=== PATIENT | female | born 1955 | race Caucasian/White ===

== ENCOUNTER 2017-03-09 15:03 | Emergency (ER) | payer BC ==
[~2017-03-09] VITALS: Ht 165.1 cm; Wt 77.1 kg
[2017-03-09 15:09] VITALS: BP 188/105
[2017-03-09] MEDS ORDERED: TRAMADOL 50 MG50 MG PO (16:17)
[2017-03-09] MEDS ORDERED: NORFLEX100 MG PO (16:17)
== END 2017-03-09 17:05 | disposition home or self-care (01) ==
LOC: ER 15:03
DX: M54.6 Pain in thoracic spine (principal); M62.830 Muscle spasm of back; J45.909 Unspecified asthma, uncomplicated; K21.9 Gastro-esophageal reflux disease without esophagitis; I10 Essential (primary) hypertension; Z88.2 Allergy status to sulfonamides; Z88.5 Allergy status to narcotic agent

== ENCOUNTER 2019-12-17 04:06 | Inpatient (IN) | payer BC ==
[~2019-12-17] VITALS: Ht 162.6 cm; Wt 81.6 kg
--- NOTE | ~2019-12-17 | EMS ---
[facility] [address] [place] [address] EMS Patient Care Report Name: CINDI MARCUM Room #: 170-12 ADM IN M.R.#: [id number] Admission: 12/17/19 Attend Phys: Maria G Ornelas MD Discharge: Date of : 59 Report #: [id number] THIS REPORT FOR: //name// Report Transmitted: 12/17/2019 05:32 EMS Care Summary [facility] MED-ACT Incident [id number] @ 12/17/2019 03:28 Incident Location [address] [place] [address] Patient CINDI MARCUM Female, 64 Years 1955 Patient Address [address] [place] [address] Patient History Hypertension (HTN),Depression,Anxiety,Alcohol Abuse, Patient Allergies Sulfa, Patient Medications Proair, Trazodone, Lorazepam, Amlodipine, Chief Complaint i feel terrible Disposition Transported No Lights/[place] Dispatch Reason Sick Person Transported To [facility] Narrative This crew arrives to find the pt sitting on a couch inside the living room of her apartment. She appears alert, anxious, and in no obvious distress, speaking [facility] [address] [place] [address] EMS Patient Care Report Name: CINDI MARCUM Room #: 170-12 ADM IN [place]#: [id number] Admission: 12/17/19 Attend Phys: Maria G Ornelas MD Discharge: Date of : 59 Report #: [id number] with S47. The pt states that for the previous few days she has felt "weak", "pain all over", difficulty breathing, and "like I'm going to ". She notes that the the dyspnea was unchanged with multiple uses of her home inhaler. She adds that she has not eaten in the previous day nor slept the past few nights. On this date she states that the symptoms had continued unchanged. At contact she reports generalized pain throughout her body, 11/29. She adds that she feels it is difficult for her to get a deep breath and that she has had a mildly productive cough with clear sputum. She moves steadily about her home and does not feel warm. She is shaking from all her limbs. The pt reports a history of anxiety and alcohol abuse. She states that her last drink was the previous day. The pt is assisted from her home to the cot just outside her door. She is secured and moved to the ambulance without incident. She is transported with two attendants in back, no change in condition during brief transport. The pt is moved to ER bed 12 without incident, report and care given to ANGELO Martines. Initial Vitals @03:42MI Suspected: false @03:48P: 101,BP: 183/87, @03:56P: 185,SpO2: 96, @03:59BP: 193/104,SpO2: 93, @03:58P: 51,SpO2: 92, @03:50P: 154,SpO2: 97, @PTAP: 104,R: 24,BP: 162/93,Pain: 10/10,GCS: 15,SpO2: 94,Revised Trauma: 12, @03:48SpO2: 100, @03:54P: 255,SpO2: 97, Assessments @03:58MENTAL:Person Oriented,Time Oriented,Place Oriented,Event Oriented,SKIN:HEENT:Eyes: Left Pupil: 3-mm,Eyes: Right Pupil: 3-mm,Head/Face: No Abnormalities,LUNG SOUNDS:General: No Abnormalities,ABDOMEN:General: No Abnormalities,PELVIS//GI:EXTREMITIES:Left Arm: No Abnormalities,Right Arm: No Abnormalities,Left Leg: No Abnormalities,Right Leg: No Abnormalities,PULSE:NEURO:No Abnormalities, Impression Malaise Procedures @03:58ALS AssessmentResponse: UnchangedSucceeded@03:4212-Lead ECGResponse: UnchangedSucceeded 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,BP: 162/93 M,PULSE: 104,RR: 24 R,SPO2: 94 Ox,ETCO2: ,BG: ,PAIN: 10,GCS: 15, 03:26,Call Received [address] [place] [address] EMS Patient Care Report Name: CINDI MARCUM Room #: 170-12 ADM IN M.R.#: [id number] Admission: 12/17/19 Attend Phys: Maria G Ornelas MD Discharge: Date of : 59 Report #: [id number] 03:26,Psap Call 03:28,Dispatched 03:30,En Route 03:37,On Scene 03:41,At Patient 03:42,12-Lead ECG,Response: UnchangedSucceeded, 03:42,BP: / M,PULSE: ,RR: R,SPO2: Ox,ETCO2: ,BG: ,PAIN: ,GCS: , 03:48,BP: 183/87 M,PULSE: 101,RR: R,SPO2: Ox,ETCO2: ,BG: ,PAIN: ,GCS: , 03:48,BP: / M,PULSE: ,RR: R,SPO2: 100 Ox,ETCO2: ,BG: ,PAIN: ,GCS: , 03:50,BP: / M,PULSE: 154,RR: R,SPO2: 97 Ox,ETCO2: ,BG: ,PAIN: ,GCS: , 03:52,Depart Scene 03:54,BP: / M,PULSE: 255,RR: R,SPO2: 97 Ox,ETCO2: ,BG: ,PAIN: ,GCS: , 03:56,BP: / M,PULSE: 185,RR: R,SPO2: 96 Ox,ETCO2: ,BG: ,PAIN: ,GCS: , 03:58,ALS Assessment,Response: UnchangedSucceeded, 03:58,At Destination 03:58,BP: / M,PULSE: 51,RR: R,SPO2: 92 Ox,ETCO2: ,BG: ,PAIN: ,GCS: , 03:59,BP: 193/104 M,PULSE: ,RR: R,SPO2: 93 Ox,ETCO2: ,BG: ,PAIN: ,GCS: , 04:17,Call Closed Disclaimer v1.1 Copyright 2020 [employer] This EMS Care Summary contains data elements from the applicable legal record (which may be displayed differently). It is designed to provide pertinent information for the following purposes: continuity of care, clinical quality, and state data reporting. The complete legal record is available to ED staff and administrators of the receiving hospital in [facility]'s Patient Tracker. All data is provided "as is."
[~2019-12-17 04:06] MED LIST: NORFLEX100 MG PO; TRAMADOL 50 MG50 MG PO
[2019-12-17 04:09] VITALS: BP 150/87
[2019-12-17 05:12] LABS: ABSOLUTE NEUTROPHILS 5.5 thou/uL (1.4-8.2); BASOPHILS 0.2 % (0.0-2.0); HEMATOCRIT 38.1 % (37.0-47.0); HEMOGLOBIN 13.1 gm/dL (12.0-15.0); LYMPHOCYTES 7.9 % (24.0-44.0); MCH 32.2 pg (26.0-34.0); MCHC 34.3 g/dL (28.0-37.0); MONOCYTES 5.9 % (1.0-8.0); PLATELET COUNT 143 thou/uL (150-400); RBC 4.06 mil/uL (4.20-5.00); WBC 6.4 thou/uL (4.0-11.0)
[2019-12-17 05:14] LABS: ANION GAP 14 mmol/L (7-16); BUN 5 mg/dL (7-18); CALCIUM 8.4 mg/dL (8.5-10.1); CHLORIDE 84 mmol/L (98-107); CO2 23 mmol/L (21-32); CREATININE 0.8 mg/dL (0.6-1.0); GLUCOSE 130 mg/dL (74-106); POTASSIUM 3.2 mmol/L (3.5-5.1); SODIUM 121 mmol/L (136-145)
[2019-12-17 05:16] LABS: URINE BILIRUBIN NEGATIVE (Negative); URINE BLOOD 2+ (Negative); URINE CLARITY CLEAR; URINE COLOR YELLOW; URINE GLUCOSE-RANDOM* 1+ (Negative); URINE KETONES NEGATIVE (Negative); URINE LEUKOCYTES-REFLEX NEGATIVE (Negative); URINE NITRITE-REFLEX NEGATIVE (Negative); URINE PROTEIN (DIPSTICK) 1+ (Negative); URINE UROBILINOGEN 0.2 E.U./dl (0.2-1.0)
[2019-12-17 05:25] LABS: ALBUMIN 3.8 g/dL (3.4-5.0); LIPASE 110 U/L (73-393); SGOT 160 U/L (15-37); SGPT 173 U/L (30-65); TOTAL BILIRUBIN 1.4 mg/dL (0.2-1.0); TOTAL PROTEIN 7.3 g/dL (6.4-8.2); TROPONIN-I <0.06 ng/mL (<0.06)
[2019-12-17 05:38] LABS: BACTERIA-REFLEX 1-9 Few /HPF (None Seen); CASTS None Seen /LPF (None Seen); CRYSTALS None Seen /LPF (None Seen); MUCUS 0-3 Light strn/LPF (None Seen); SQUAMOUS 4-10 Moderate /LPF (0-3); URINE RBC 3-10 Few /HPF (0-2); URINE WBC-REFLEX 0-5 Rare /HPF (0-5)
--- NOTE | 2019-12-17 08:02 | EKG ---
[facility] [place] [address] ELECTROCARDIOGRAM REPORT Name: CINDI MARCUM Room #: 170-12 ADM IN M.R.#: [id number] Admission: 12/17/19 Attend Phys: Maria G Ornelas MD Discharge: Date of : 59 Report #: [id number] THIS REPORT FOR: cc: [facility] - Clinic physician unknown [facility] - Clinic physician unknown Memo Miller MD [facility] ~ THIS REPORT FOR: //name// [facility] ED Test Date: 2019-12-17 Test Time: 04:39:27 Pat Name: CINDI MARCUM Department: Room: 170 Gender: F Associate Manager: STEPHANIE : 1955 Requested By: Dell Tafoya Order Number: [id number] MD: Memo Miller Measurements Intervals [place] Rate: 101 P: [place]: QRS: 4 QRSD: 90 T: 6 QT: 317 QTc: 411 Interpretive Statements SINUS TACHYCARDIA Borderline T abnormalities, inferior leads Compared to ECG 08/21/2008 15:26:10 No significant change Electronically Signed On 12-17-2019 8:01:51 CDT by Memo Miller [email or web address] <ELECTRONICALLY SIGNED> By: Memo Miller MD, FACC 12/17/19 0801 [id number] Memo Miller MD, [facility] /EPI
[2019-12-17 09:09] VITALS: BP 158/85
--- NOTE | 2019-12-17 09:15 | NUR ---
RECEIVED CALL FOR [facility] OF [facility] 4.4. CALL PLACED TO DR TAVAREZ WAITING FOR RETURN
[2019-12-17 09:39] VITALS: BP 158/85
[2019-12-17 11:26] VITALS: BP 156/82
[2019-12-17 16:03] VITALS: BP 147/89
--- NOTE | 2019-12-17 16:18 | NUR ---
INITIAL ASSESSMENT: DEMETRIA notified by VANNESSA RN that pt's insurance is out of network with [facility]. Pt will need to transfer to an in-network provider: [place], [facility], [facility], [facility], [facility] or [facility]. DEMETRIA placed call to transfer centers for all of these hospitals. [place] and [facility] are not taking and transfers at this time. [facility], [facility], [facility] and [facility] are able to consider transfer. DEMETRIA spoke with pt via phone. Pt verbalized understanding of need for transfer. Pt [facility]. DEMETRIA faxed face sheet to transfer center. Spoke with Roxie. Provided contact info for attending physician. Pt is COVID negative. [facility] and [facility] transfer form faxed to nurses station to place on pt's chart. DEMETRIA spoke with pt's nurse to provide update. [facility] Transfer center to contact SW or nurses station with accepting physician and bed assignment. Chart copy requested. DEMETRIA spoke with Lluvia in radiology to request images to be uploaded to the [facility]. Once bed has been assigned, ambulance transportation will need to be arranged. DEMETRIA is available to assist as needed. [facility] N[facility]-- [facility]--
[2019-12-17] MEDS ORDERED: ATIVAN0.5 M1 PO (17:17)
[2019-12-17] MEDS ORDERED: NORVASC 2.5 MG2.5 M1 PO (17:18)
[2019-12-17] MEDS ORDERED: CELEXA 10 MG TA10 M1 PO (17:19)
[2019-12-17] MEDS ORDERED: ZOLPIDEM TARTRA10 MG PO (17:21)
--- NOTE | 2019-12-17 18:48 | NUR ---
PATIENT ADMIT TO UNIT AT 1000 FROM ER. A/O X4 ETOH, CIW 6. UP WITH STANDBY ASSISTED TO BSC. GAIT UNSTEAD. LOW GRADE TEMP. MAY TRANSFER OUT TONIGHT. SLOWLY TOWARDS POC GOALS.
== END 2019-12-17 21:39 | DRG 872 ==
LOC: ER 04:06 → EROBS 05:59 → 3W 09:42
PROVIDERS: Emergency Medicine; ADMIT Hospitalist; ATTEND Hospitalist
DX: A41.9 Sepsis, unspecified organism (principal); E87.2 Acidosis; F10.239 Alcohol dependence with withdrawal, unspecified; E87.1 Hypo-osmolality and hyponatremia; J45.909 Unspecified asthma, uncomplicated; K21.9 Gastro-esophageal reflux disease without esophagitis; I10 Essential (primary) hypertension; Z20.828 Contact with and (suspected) exposure to other viral communicable diseases; Z88.2 Allergy status to sulfonamides; Z90.710 Acquired absence of both cervix and uterus
CPT/HCPCS: 10879

== ENCOUNTER 2020-09-17 21:58 | Inpatient (IN) | payer BC ==
[~2020-09-17] VITALS: Ht 152.4 cm; Wt 77.6 kg
--- NOTE | ~2020-09-17 | EMS ---
[address] [address] EMS Patient Care Report Name: CINDI MARCUM Room #: 356-P ADM IN M.R.#: [id number] Admission: 09/18/20 Attend Phys: Nitesh Bourgeois MD Discharge: Date of : 59 Report #: [id number] THIS REPORT FOR: //name// Report Transmitted: 09/18/2020 06:29 EMS [facility]ACT Incident [id number] @ 09/17/2020 21:23 Incident Location [address] [place] [address] Patient CINDI MARCUM Female, 65 Years 1955 Patient Address [address] [place] [address] Patient History Anxiety Disorder (Panic Attacks),Back Pain (Chronic),Insomnia, Patient Allergies Sulfa, Patient Medications Lorazepam, Tylenol, Albuterol, Ambien, Amlodipine, Chief Complaint nausea, dark urine, difficulty urinating Disposition Transported No Lights/[place] Dispatch Reason Abdominal Pain/Problems Transported To [facility] Narrative Dispatched to a residence for a female pt reporting nausea, lack of appetite, LUQ pain, and general malaise x3 days. Pt is found alert, supine in bed with [address] [address] EMS Patient Care Report Name: CINDI MARCUM Room #: 356-P [facility] IN M.R.#: [id number] Admission: 09/18/20 Attend Phys: Nitesh Bourgeois MD Discharge: Date of : 59 Report #: [id number] [facility] crew tending to her. Pts reports that she has not been eating due to the nausea, and that her urine (when she can produce any) is dark in color. Pt reports that she has LUQ pain/tenderness as well. She denies any chest pain, difficulty breathing, change in medications or recent injury. Pt says that she wants to be transported to the nearest ER ([facility]) for further evaluation and treatment. Pt is assisted to the cot before being secured and moved to the ambulance for a no lights or sirens transport to [facility]. While en route, pt reports an increase in nausea. IV zofran is given with mild relief reported. Pt is lifted from the cot to the ER bed in room #8 using a lateral sheet pull. Care transferred to waiting RN and MD team. 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,BP: 135/84 M,PULSE: 118,RR: 18 R,SPO2: 95 Ox,ETCO2: ,BG: ,PAIN: 6,GCS: 15, 21:20,Call Received 21:20,Psap Call 21:23,Dispatched 21:23,En Route 21:32,On Scene 21:35,At Patient 21:43,BP: 132/95 M,PULSE: 60,RR: R,SPO2: Ox,ETCO2: ,B,PAIN: ,GCS: , 21:46,Depart Scene 21:46,BP: / M,PULSE: 123,RR: R,SPO2: 94 Ox,ETCO2: ,BG: ,PAIN: ,GCS: , 21:49,Saline Lock 15cc 22 ga Site: Hand-Left,Response: UnchangedSucceeded, 21:51,Surgical Mask on Patient,Response: Unchanged 21:52,Ondansetron - 4 Milligrams (mg) - Intravenous (IV),Response: Improved 21:53,BP: 145/91 M,PULSE: 116,RR: R,SPO2: 94 Ox,ETCO2: ,BG: ,PAIN: ,GCS: , 21:53,At Destination 22:09,Call Closed [address] [address] EMS Patient Care Report Name: CINDI MARCUM Room #: 356-P [facility] IN M.R.#: [id number] Admission: 09/18/20 Attend Phys: Nitesh Bourgeois MD Discharge: Date of : 59 Report #: [id number] Disclaimer v1.1 Copyright 202 [employer] This EMS Care Summary contains data elements from the applicable legal record (which may be displayed differently). It is designed to provide pertinent information for the following purposes: continuity of care, clinical quality, and state data reporting. The complete legal record is available to ED staff and administrators of the receiving hospital in [facility]'s Patient Tracker. All data is provided "as is."
[2020-09-17 21:58] VITALS: BP 141/83
[~2020-09-17 21:58] MED LIST changes: +ATIVAN0.5 M1 PO; +CELEXA 10 MG TA10 M1 PO; +NORVASC 2.5 MG2.5 M1 PO; +ZOLPIDEM TARTRA10 MG PO
[2020-09-17 22:22] LABS: ABSOLUTE NEUTROPHILS 4.4 thou/uL (1.4-8.2); BASOPHILS 0.1 % (0.0-2.0); EOSINOPHILS 0.1 % (0.0-3.0); HEMATOCRIT 41.8 % (37.0-47.0); HEMOGLOBIN 14.4 gm/dL (12.0-15.0); LYMPHOCYTES 9.2 % (24.0-44.0); MCH 34.2 pg (26.0-34.0); MCHC 34.4 g/dL (28.0-37.0); MCV 99.3 fL (80.0-100.0); MONOCYTES 12.3 % (1.0-8.0); PLATELET COUNT 120 thou/uL (150-400); POLYS 78.3 % (36.0-66.0); RBC 4.21 mil/uL (4.20-5.00); RDW 18.2 % (10.5-14.5); WBC 5.6 thou/uL (4.0-11.0)
[2020-09-17 22:24] LABS: CREATININE 0.7 mg/dL (0.6-1.0); POTASSIUM 3.8 mmol/L (3.5-5.1)
[2020-09-17 22:36] LABS: ALBUMIN 3.7 g/dL (3.4-5.0); TOTAL BILIRUBIN 2.7 mg/dL (0.2-1.0); TOTAL PROTEIN 7.3 g/dL (6.4-8.2)
[2020-09-17 23:24] LABS: URINE BILIRUBIN 1+ (Negative); URINE BLOOD NEGATIVE (Negative); URINE CLARITY CLEAR; URINE COLOR YELLOW; URINE GLUCOSE-RANDOM* NEGATIVE (Negative); URINE KETONES 3+ (Negative); URINE LEUKOCYTES-REFLEX NEGATIVE (Negative); URINE NITRITE-REFLEX NEGATIVE (Negative); URINE PROTEIN (DIPSTICK) 2+ (Negative); URINE SPECIFIC GRAVITY >= 1.030 (1.005-1.035)
[2020-09-18 00:04] LABS: BACTERIA-REFLEX 1-9 Few /HPF (None Seen); SQUAMOUS >10 Many /LPF (0-3); URINE RBC 1-2 Rare /HPF (NONE SEEN); URINE WBC-REFLEX 0-5 Rare /HPF (0-5)
[2020-09-18 00:05] LABS: CASTS None Seen /LPF (None Seen); CRYSTALS None Seen /LPF (None Seen); MUCUS 0-3 Light strn/LPF (None Seen)
[2020-09-18 03:07] VITALS: BP 136/73
[2020-09-18 03:22] VITALS: BP 149/84
[2020-09-18 04:00] VITALS: BP 135/83
--- NOTE | 2020-09-18 05:13 | NUR ---
ADMIT PT ADMITTED TO ROOM 356 FROM ER WITH PANCREATITIS AND ALCOHOL WITHDRAWAL. PT A/O X4 , REFUSES TO AMBULATE D/T PAIN. RATING PAIN A 10 OUT OF 0/10 SCALE. 50 MCG OF FENTANYL GIVEN IVP WITH LITTLE EFFECT PT FALLING ASLEEP BUT STILL RATING PAIN A 10. TELE INTACT READING SR. IV TO LF INFUSING NS@126CC/HR, THIAMINE INFUSING. 1 MG ATIVAN GIVEN IVP FOR ANXIETY AND TREMORS. ORIENTED TO ROOM CALL LIGHT AND PLAN OF CARE. ADMISSION QUESTIONAIRE AND ASSESSMENT COMPLETED CONTINUE TO MONITOR.
[2020-09-18 06:11] LABS: HEMATOCRIT 40.3 % (37.0-47.0); HEMOGLOBIN 13.6 gm/dL (12.0-15.0); MCH 34.1 pg (26.0-34.0); MCHC 33.7 g/dL (28.0-37.0); RBC 3.99 mil/uL (4.20-5.00); RDW 17.9 % (10.5-14.5); WBC 6.4 thou/uL (4.0-11.0)
[2020-09-18 06:42] LABS: CALCIUM 8.4 mg/dL (8.5-10.1); CREATININE 0.8 mg/dL (0.6-1.0); POTASSIUM 3.7 mmol/L (3.5-5.1)
[2020-09-18 06:47] LABS: ALBUMIN 3.4 g/dL (3.4-5.0); MAGNESIUM 1.9 mg/dL (1.8-2.4); PHOSPHORUS 2.7 mg/dL (2.5-4.9); TOTAL BILIRUBIN 2.5 mg/dL (0.2-1.0); TOTAL PROTEIN 6.7 g/dL (6.4-8.2)
[2020-09-18 08:02] LABS: FOLIC ACID 23.4 ng/mL (8.6-58.9)
[2020-09-18 08:07] VITALS: BP 116/70
[2020-09-18 10:38] LABS: AMP/METHAMP Negative (Negative); BARBITURATES Negative (Negative); BENZODIAZEPINES Negative (Negative); COCAINE Negative (Negative); METHADONE Negative (Negative); OPIATES Negative (Negative); PCP Negative (Negative)
--- NOTE | 2020-09-18 11:06 | NUR ---
ASSUMED CARE OF PT THIS AM. PT A&O X4, DENIES ANY CHEST PAIN. CIWA SCALE STARTED. SEIZURE PRECAUTIONS IN PLACE. FREQUENT ADMINISTRATION OF PAIN MEDICATOINS REQUESTED. TREMORS AND AGITATION NOTED. PT RATES PAIN 10 ON 0 - 10 PAIN SCALE, GENERALIZED ABDOMEN. WILL CONTINUE TO MONITOR.
[2020-09-18 16:20] VITALS: BP 149/86
--- NOTE | 2020-09-18 16:23 | NUR ---
INITIAL ASSESSMENT: DEMETRIA reviewed chart and spoke with nursing and attending physician. Pt was admitted from home due to pancreatitis/ETOH withdrawal. Pt had negative COVID test on 09/17. Pt has had the Pfizer Vaccine. SW notified that pt's insurance is out of network. Pt has the option to to transfer to an in-network facility or use her out of network benefits. Pt was hospitalized last year and was transferred to [facility]. Pt unable to make decision at this time regarding transfer. DEMETRIA placed call to pt's room. No answer. Should pt's condition stabilize and pt wanting to transfer, transfer process will need to be initiated with an alternate hospital. ([facility], [facility], [facility], [facility], [facility] and [facility]). Transfer form and ambulance form will need to be completed once pt has a bed assignment at alternate hospital. Chart will need to be copied and radiology images will need to be uploaded to the cloud. DEMETRIA is following and available to assist should needs arise.
--- NOTE | 2020-09-18 16:32 | NUR ---
PT HAS [employer] INSURANCE WITH IN AND OON BENEFITS. SPOKE WITH HER ABOUT HER INSURANCE BENEFITS AND SHE WAS NOT LUCID ENOUGH TO MAKE DECISION TODAY ABOUT STAYING AT [facility] USING OON BENEFITS WITH $2,888.15 OUT OF POCKET TO MEET HER MAX OON OUT OF POCKET VS TRANSFERRING TO IN NETWORK HOSPITAL ([facility], COUNTS INCLUDE 234 BEDS AT THE [facility], [facility], [facility], [facility]) WHERE SHE WOULD HAVE NO OUT OF POCKET. UPDATED BRITTANI RODRIGUEZ L TACKER AND 3W LAND ECONOMIST AND WEEKEND HITTING COACH FOR CASE MANAGEMENT. EL
[2020-09-18 20:23] VITALS: BP 175/105
--- NOTE | 2020-09-18 22:38 | NUR ---
PT SEDATED RESTING IN BED, SHEETS IN BALL, PT ASKING FOR HELP WITH PILLOWS. IVF INTACT. PT REQUESTED PRN FOR ABD PAIN X 1. PT HAS ASKED SEVERAL TIMES FOR SOMETHING TO DRINK. PT REMINDED NPO AND TO TALK WITH IN AM. BED ALARM ON.
[2020-09-19 03:45] VITALS: BP 143/88
[2020-09-19 06:49] LABS: HEMOGLOBIN 13.7 gm/dL (12.0-15.0); MCH 34.2 pg (26.0-34.0); MCHC 33.6 g/dL (28.0-37.0); MCV 101.8 fL (80.0-100.0); RBC 4.02 mil/uL (4.20-5.00); RDW 17.4 % (10.5-14.5); WBC 8.1 thou/uL (4.0-11.0)
[2020-09-19 07:14] VITALS: BP 156/97
[2020-09-19 07:27] LABS: CALCIUM 8.6 mg/dL (8.5-10.1); CREATININE 0.7 mg/dL (0.6-1.0)
[2020-09-19 15:28] VITALS: BP 155/101
--- NOTE | 2020-09-19 18:47 | NUR ---
RN ASSUMED PT'S CARE AT 0700AM, PT IS A&OX3 ( PERSON, PLACE AND PLACE), PT IS ON O2 2L/MIN/NC, PT'S VS AND O2SAT ARE STABLE, PT'S CIWA SCORES ARE 2-9, PT HAS MEDICATION ORDER, PT'S ABD PAIN CAN CONTROL BY MEDICATIONS, PT IS TOLERATIVE FULL LIQUID DIET , PT HAS IV MEDICATIONS FOR LOW POTUSSIUM AND LOW MAGENESIUM REPLACEMENT PER POTOCOL .
[2020-09-19 20:21] VITALS: BP 136/98
[2020-09-20 00:39] LABS: MAGNESIUM 1.9 mg/dL (1.8-2.4); POTASSIUM 3.4 mmol/L (3.5-5.1)
[2020-09-20 03:20] VITALS: BP 128/78
[2020-09-20 06:15] LABS: HEMATOCRIT 38.1 % (37.0-47.0); HEMOGLOBIN 13.2 gm/dL (12.0-15.0); MCH 34.6 pg (26.0-34.0); MCHC 34.7 g/dL (28.0-37.0); MCV 99.6 fL (80.0-100.0); RBC 3.83 mil/uL (4.20-5.00); WBC 6.7 thou/uL (4.0-11.0)
--- NOTE | 2020-09-20 06:22 | NUR ---
Patient making slow progress towards outcome goals. Alert with periods of anxiety, CIWA 4-5, treated with Lorazepam with some relief. Hydrocodone for pain with some relief. Patient weak, high fall risks, fall precautions in place. IVfluids infusing. Tolerating full liquids. Incontinent or urine, external female catheter, working for the most part, some leakage at times. Protective barrier ointment applied.
[2020-09-20 07:47] LABS: CALCIUM 8.4 mg/dL (8.5-10.1); CREATININE 0.6 mg/dL (0.6-1.0); PHOSPHORUS 1.8 mg/dL (2.5-4.9); POTASSIUM 3.4 mmol/L (3.5-5.1)
[2020-09-20 08:35] VITALS: BP 145/98
[2020-09-20 16:43] VITALS: BP 135/92
--- NOTE | 2020-09-20 19:13 | NUR ---
RN ASSUMED PT'S CARE AT 0700-1900PM, PT IS A&OX3 ( PERSON, PLACE AND TIME), PT 'S O2 IS OFF TODAY, PT'S O2SAT KEEPS >92%, PT IS CONTINUING PAIN AND ANXIETY MANAGENENT, PT'S CIWA SCAORES ARE 2-4, PT IS TOLERATVE REGULAR DIET AT DINNER TIME.
[2020-09-20 20:20] VITALS: BP 146/87
--- NOTE | 2020-09-21 05:11 | NUR ---
Patient making some progress towards outcome goals. Diet advance to regular, some nausea but no vomiting. IVFluids infusing. Zofran relieved nausea. CIWA 5-9 medicated with Ativan. Hydrocodone for pain with relief. High fall risks, fall precautions in place. Good urine output, urine color from cassandra to dark yellow.
[2020-09-21 07:46] VITALS: BP 154/84
--- NOTE | 2020-09-21 09:00 | NUR ---
Assess due to admit with pancreatitis, alcohol withdrawal. Lipase initially >9000, now 1857. Diet progressing to solid foods and pt tolerating 40-80%. Wts variable 160-180 lb since Nov 2019. On MVI, thiamine supplementation. Low nutrition risk.
--- NOTE | 2020-09-21 11:52 | NUR ---
SW reviewed chart and spoke with nursing and attending physician. Pt is progressing towards goals for discharge. Discharge is anticipated for tomorrow. PT/OT ordered today to evaluate pt for discharge needs. SW spoke with pt via phone. Introduced role of SW. Pt is alert/orientated. Pt stated that she worked with therapy this morning and she feels very weak and does not think she will be able to go directly home when discharged. SW discussed post-acute care. Pt states that staff mentioned [facility]. SW explained the admission criteria for [facility] and the need for insurance auth. Pt verbalized understanding. [facility]/acute rehab would be her first choice. SW sent pt a list of in-network SNFs for review as well. SW notified rn rehabilitation, who will check pt's insurance. SW discussed that pt's insurance is [id number] with and she has OON benefits. Pt verbalized understanding and states that she has met her out of pocket deductible. Awaiting input from [facility] at this time. DEMETRIA is following to assist as needed with discharge planning.
[2020-09-21 13:26] LABS: CALCIUM 8.9 mg/dL (8.5-10.1); CREATININE 0.7 mg/dL (0.6-1.0); MAGNESIUM 1.5 mg/dL (1.8-2.4); POTASSIUM 3.3 mmol/L (3.5-5.1)
[2020-09-21 15:35] VITALS: BP 153/103
--- NOTE | 2020-09-21 17:11 | NUR ---
RN ASSUMED PT'S CARE AT 0700AM, PT IS A&OX3 ( PERSON , TIME AND PLACE), PT IS ON ROOM AIR, PT'S VS ARE STABLE, PT'S CIWA SCORES ARE 2-7, PT'S ANXIETY AND PAIN CAN CONTROL , PT IS TOLERAIVE REGULAR DIET , PT HAS LOW MAG AND POTASSIUM REPLACEMENT PER PROTOCOL ORDER.
[2020-09-21 19:55] VITALS: BP 154/95
[2020-09-22 03:05] VITALS: BP 144/87
--- NOTE | 2020-09-22 04:38 | NUR ---
Pt. very anxious,intermittently restless during the night and just can't get comfortable. Anxiety med and pain med given with some relief. She slept intermittenly. External female cath in place with large amount of urine. Also incontinent in between due to ext. cath being disconnected. Lorazepam po given initially then IV given this am due to po not helping much per pt. She eventually started resting after IV ativan given. Pt. is worried that she may not be able to walk ever again. She requested to get up on side of the bed just to stretch and stated she's tired of being on the bed.
[2020-09-22 06:00] LABS: HEMATOCRIT 36.1 % (37.0-47.0); HEMOGLOBIN 12.5 gm/dL (12.0-15.0); MCH 34.9 pg (26.0-34.0); MCHC 34.6 g/dL (28.0-37.0); MCV 100.9 fL (80.0-100.0); RBC 3.58 mil/uL (4.20-5.00); RDW 17.1 % (10.5-14.5); WBC 5.1 thou/uL (4.0-11.0)
[2020-09-22 06:04] LABS: CALCIUM 8.5 mg/dL (8.5-10.1); CREATININE 0.5 mg/dL (0.6-1.0); POTASSIUM 3.8 mmol/L (3.5-5.1)
[2020-09-22 08:28] VITALS: BP 147/105
--- NOTE | 2020-09-22 12:58 | NUR ---
SW reviewed chart and spoke with nursing and attending physician. Pt is progressing towards goals for discharge. SW faxed additional info and updates to [facility] for review. DEMETRIA spoke with YAMILET Rosenberg liaison, to provide update. Per YAMILET Rosenberg will submit for insurance auth today. DEMETRIA spoke with pt via phone to provide update. Pt is aware and in agreement with discharge plan. SW is following to assist as needed with discharge planning.
[2020-09-22 15:30] VITALS: BP 152/106
--- NOTE | 2020-09-22 15:32 | NUR ---
RN ASSUMED PT'S CARE AT 0700AM, PT IS A&OX3 ( PERSON, PLACE AND TIME), PT IS ON ROOM AIR , PT'S VS ARE STABLE, PT IS CONTINUING TO MANAGEMENT ANXIETY, ALCOHOL WITHDRAWAL AND PAIN MAMAGEMENT, PT'S CIWAIS SCORES ARE 2-9 , PT HAS BLE WEAKNESS , PT HAS PT/OT WORKING WITH HER, WE CALL DR ZHOU FOR CONSULT AGAIN , PT'S PLAN IS DC TO SNF.
--- NOTE | 2020-09-22 18:37 | NUR ---
DR RAMOS HAS SEEING THIS PT, PT'S HEALTH CONDITION HAS IMPROVED, HAS ADJUSTED PT'S SOME MEDICATIONS. PT DOES NOT WANT DR RAMOS TO CALL HER SISITER.
[2020-09-22 19:36] VITALS: BP 143/103
[2020-09-23 03:44] VITALS: BP 151/96
[2020-09-23 05:44] LABS: HEMATOCRIT 40.6 % (37.0-47.0); HEMOGLOBIN 13.6 gm/dL (12.0-15.0); MCH 34.3 pg (26.0-34.0); MCHC 33.5 g/dL (28.0-37.0); MCV 102.3 fL (80.0-100.0); RBC 3.97 mil/uL (4.20-5.00); RDW 17.5 % (10.5-14.5); WBC 6.2 thou/uL (4.0-11.0)
[2020-09-23 06:16] LABS: CREATININE 0.7 mg/dL (0.6-1.0); POTASSIUM 4.2 mmol/L (3.5-5.1)
--- NOTE | 2020-09-23 06:59 | NUR ---
Pt. slept better last night and less anxious. Pain med given x1 and lorazepam given x 1 this shift. Ext. cath in place though at times she disconnects. Requested mom for constipation then c/o nausea this am. Zofran given with some relief.
[2020-09-23 07:30] VITALS: BP 127/83
[2020-09-23] MEDS ORDERED: PEPCID20 MG PO (11:34)
[2020-09-23] MEDS ORDERED: FOLIC ACID1 MG PO (11:34)
[2020-09-23] MEDS ORDERED: REMERON 30 MG T30 M1 PO (11:34)
[2020-09-23] MEDS ORDERED: VITAMIN B-1100 M2 PO (11:34)
--- NOTE | 2020-09-23 13:07 | NUR ---
DISCHARGE NOTE: DEMETRIA reviewed chart and spoke with nursing and attending physician. Pt is medically stable for discharge today. DEMETRIA notified by Love at [facility] that they did receive insurance authorization and they can admit pt today. Wheelchair van transportation scheduled for 1500 per [facility]'s arrangements. DEMETRIA spoke with pt via phone to provide update. Pt is aware and agreeable with discharge plan. Pt asked if she would be discharge this evening, to allow her time to get ready to discharge. SW explained that the nursing staff will help her get ready and the [facility] would like her to be admitted this afternoon, in order to get her settled before the evening. Pt agreeable with plan and gave consent for SW to update her sister, Ana. DEMETRIA spoke with Ana via phone. Notified of discharge plan. Pt agreeable with going to [facility] for ETOH treatment after rehab stay at [facility]. Ana to contact [facility] to assist with transition and admission. Ana is agreeable with plan. SW notified Ana of visiting hours/restrictions at [facility]. DEMETRIA updated attending physician. Discharge ppwk faxed to [facility] and received confirmation. Nursing provided with number to call report. Chart copy requested. No additional SW needs identified at this time, but is available to assist should needs arise.
[2020-09-23 15:09] VITALS: BP 130/93
--- NOTE | 2020-09-23 15:45 | NUR ---
ciwa-2. mildly anxious, no visible tremors. transported to [facility] in wheelchair van with chart copy and discharge instructions.
--- NOTE | 2020-09-23 15:59 | NUR ---
pt transferred with patent heplock, no fluids at this time. pt stated that she is a difficult iv stick. called report to Peg Nolasco RN (receiving rn) at [facility].
== END 2020-09-23 15:52 | DRG 439 ==
LOC: ER 21:58 → 3W 09-18 02:53 → EROBS 09-18 02:53 → 3W 09-18 04:12
PROVIDERS: Emergency Medicine; Nurse Practitioner Family; ADMIT Hospitalist; ATTEND Hospitalist
DX: K85.20 Alcohol induced acute pancreatitis without necrosis or infection (principal); F10.139 Alcohol abuse with withdrawal, unspecified; J45.909 Unspecified asthma, uncomplicated; K21.9 Gastro-esophageal reflux disease without esophagitis; I10 Essential (primary) hypertension; R74.01 Elevation of levels of liver transaminase levels; Z20.822 Contact with and (suspected) exposure to COVID-19; F10.129 Alcohol abuse with intoxication, unspecified; Z96.651 Presence of right artificial knee joint; Z60.2 Problems related to living alone; Z90.710 Acquired absence of both cervix and uterus; Z88.2 Allergy status to sulfonamides
CPT/HCPCS: 10879